=== PATIENT | female | born 1935 | race Caucasian/White ===

== ENCOUNTER 2019-06-28 10:25 | Inpatient (IN) | payer OTHER ==
[~2019-06-28] VITALS: Ht 160 cm; Wt 63.5 kg
[2019-06-28 10:25] VITALS: BP 141/71
[2019-06-28 11:02] LABS: ABSOLUTE NEUTROPHILS 12.2 thou/uL (1.4-8.2); BASOPHILS 0.4 % (0.0-2.0); HEMATOCRIT 39.6 % (37.0-47.0); HEMOGLOBIN 12.5 gm/dL (12.0-15.0); LYMPHOCYTES 6.9 % (24.0-44.0); MCH 25.2 pg (26.0-34.0); MCHC 31.5 g/dL (28.0-37.0); PLATELET COUNT 295 thou/uL (150-400); POLYS 88.7 % (36.0-66.0); RBC 4.95 mil/uL (4.20-5.00); WBC 13.8 thou/uL (4.0-11.0)
[2019-06-28 11:06] LABS: CALCIUM 9.9 mg/dL (8.5-10.1); CREATININE 1.5 mg/dL (0.6-1.0); POTASSIUM 4.1 mmol/L (3.5-5.1)
[2019-06-28 11:07] LABS: PROTIME 10.5 Seconds (9.3-11.4)
[2019-06-28 11:12] LABS: ALBUMIN 3.9 g/dL (3.4-5.0); TOTAL BILIRUBIN 0.5 mg/dL (<0.1-1.0); TOTAL PROTEIN 8.3 g/dL (6.4-8.2)
[2019-06-28 11:27] LABS: URINE BILIRUBIN NEGATIVE (Negative); URINE BLOOD 2+ (Negative); URINE CLARITY CLEAR; URINE COLOR YELLOW; URINE GLUCOSE-RANDOM* NEGATIVE (Negative); URINE KETONES NEGATIVE (Negative); URINE LEUKOCYTES-REFLEX NEGATIVE (Negative); URINE NITRITE-REFLEX NEGATIVE (Negative); URINE PROTEIN (DIPSTICK) 1+ (Negative); URINE SPECIFIC GRAVITY 1.015 (1.005-1.035); URINE UROBILINOGEN 0.2 E.U./dl (0.2-1.0)
[2019-06-28] MEDS ORDERED: ALLOPURINOL 10100 M3 PO (11:29)
[2019-06-28] MEDS ORDERED: ASA81BEC PO (11:30)
[2019-06-28] MEDS ORDERED: ALPRAZOLAM 0.0.25 M1 PO (11:30)
[2019-06-28] MEDS ORDERED: NORVASC 2.5 MG2.5 M1 PO (11:30)
[2019-06-28] MEDS ORDERED: B-121000 MC2 PO (11:31)
[2019-06-28] MEDS ORDERED: CALCIUM + D SO1 EACH PO (11:31)
[2019-06-28] MEDS ORDERED: FUROSEMIDE 40 M40 MG PO (11:32)
[2019-06-28] MEDS ORDERED: LOPERAMIDE 2 MG2 M1 PO (11:32)
[2019-06-28] MEDS ORDERED: HYDRALAZINE 2525 M1 PO (11:32)
[2019-06-28] MEDS ORDERED: LEVO-T25 MCG PO (11:33)
[2019-06-28] MEDS ORDERED: SUPER THERAVIT1 EACH PO (11:33)
[2019-06-28 12:14] LABS: CASTS None Seen /LPF (None Seen); CRYSTALS None Seen /LPF (None Seen); SQUAMOUS 0-3 Few /LPF (0-3)
[2019-06-28 12:15] LABS: BACTERIA-REFLEX 1-9 Few /HPF (None Seen); URINE RBC 0-2 Rare /HPF (0-2); URINE WBC-REFLEX 0-5 Rare /HPF (0-5)
[2019-06-28 14:13] LABS: HEMATOCRIT 34.8 % (37.0-47.0); HEMOGLOBIN 11.1 gm/dL (12.0-15.0)
--- NOTE | 2019-06-28 18:38 | NUR ---
REC REPORT ON PT AROUND 182, ARRIVED AT 1830, MOVED TO BED, TELE PLACED, WHEN ASKED IF SHE COULD HEAR STAFF SHE NODDED, REPORT WAS STERNUM RUB DONE AND NO RESPONSE. SHE MOANED WHEN WE MOVED HER, ACCU CHECKS, RUSSELL YELLOW URINE, HAS STRONG PIPE COREMAKER ON AIDE, WHEN HER NAMES MENTIONED SHE GRUNTS. WILL GIVE REPORT TO ONCOMING SHIFT SHORTLY AND CONTINUE TO MONITOR
[2019-06-28 19:13] LABS: HEMATOCRIT 35.8 % (37.0-47.0); MCH 24.8 pg (26.0-34.0); MCHC 30.8 g/dL (28.0-37.0); MCV 80.6 fL (80.0-100.0); RBC 4.45 mil/uL (4.20-5.00); RDW 17.7 % (10.5-14.5); WBC 14.5 thou/uL (4.0-11.0)
[2019-06-28 20:07] VITALS: BP 117/55
[2019-06-28 22:06] LABS: HEMATOCRIT 33.9 % (37.0-47.0); HEMOGLOBIN 10.7 gm/dL (12.0-15.0)
[2019-06-28 23:58] VITALS: BP 123/79
[2019-06-29 05:01] LABS: ABSOLUTE NEUTROPHILS 9.8 thou/uL (1.4-8.2); BASOPHILS 0.2 % (0.0-2.0); HEMATOCRIT 32.8 % (37.0-47.0); HEMOGLOBIN 10.2 gm/dL (12.0-15.0); LYMPHOCYTES 8.4 % (24.0-44.0); MCH 25.1 pg (26.0-34.0); MCHC 31.2 g/dL (28.0-37.0); MCV 80.5 fL (80.0-100.0); MONOCYTES 8.1 % (1.0-8.0); PLATELET COUNT 236 thou/uL (150-400); POLYS 83.3 % (36.0-66.0); RBC 4.07 mil/uL (4.20-5.00); RDW 17.6 % (10.5-14.5); WBC 11.8 thou/uL (4.0-11.0)
[2019-06-29 05:05] VITALS: BP 109/52
--- NOTE | 2019-06-29 05:07 | NUR ---
PATIENS CARES WERE ASSUMED AT [facility]. PATIENT WAS ASSESSED AND MEDS WERE PASSED. PATIENT CONTINUES TO BE NON VERBAL SHE WILL SHAKE HER HEAD YES AND NO. ODERES THAT WERE WRITTEN YESTERDAY AFTERNOON WERE NOT TAKEN OFF UNTIL LAST NIGHT. WILL DO CALL OUTS FOR CONSULTS AT A MORE AGREEABLE TIME. HOURLY ROUNDS WERE DONE. THE BED IS IN A LOW AND LOCKED POSITION.
[2019-06-29 05:16] LABS: CREATININE 1.4 mg/dL (0.6-1.0); MAGNESIUM 1.9 mg/dL (1.8-2.4); POTASSIUM 3.8 mmol/L (3.5-5.1)
[2019-06-29 08:08] VITALS: BP 153/69
--- NOTE | 2019-06-29 14:05 | NUR ---
Assumed pt care at 7am.Pt in bed sound asleep most of the time and non responsive to verbal stimuli.Assessment completed.vss but low grade temp noted.Dr Pryor and Thiago here.Order noted.Pt left for ct head later this afternoon.Report called to Dr Pryor.Tylenol supp given later this afternoon for elevated temp with relief.Received call from pt's son,updates given.He wanted to get information from Dr Pryor. Rn obtained his number and forward to Dr Pryor.No changes in pt medical status.Gutierrez to dd with o2 on per nc. Repositioned in bed for comfort.Will continue to monitor.
[2019-06-29 15:27] VITALS: BP 157/82
--- NOTE | 2019-06-29 16:27 | NUR ---
Patient admits from [facility] with CVA. She has become less responsive throughout day per RN. Rec cconsult from Dr Damon for hospice house eval. Sp with sons Pieter lives local and other son out of town. Reviewed with son hospice at home, facility and hospice house. Reviewed options of hospice house. Son interested in [facility]. Sp with [facility] in intake. [place] estate planner faxing referral. Hospice will contact RN for review of criteria. They will call gabriel Stapleton. Eval in process will need outside DNR form signed by physBhargavi Allenmgt to finalize in am. Updated RN on floor and phys.
[2019-06-29 20:00] VITALS: BP 154/74
[2019-06-29 23:00] VITALS: BP 125/63
[2019-06-30 05:32] VITALS: BP 147/72
--- NOTE | 2019-06-30 07:02 | NUR ---
PATIENT CONTINUES ON COMFORT CARE. WASHED HER FACE AND DID ORAL CARE BEFORE TUCKING HER IN LAST NIGHT. SUPPOSITORY NOT GIVEN DUE TO A LARGE STOOL AT ABOUT 2000. ROUNDS WERE MADE AND THE BED IS IN A LOW AND LOCKED POSITION.
[2019-06-30 07:45] VITALS: BP 133/59
--- NOTE | 2019-06-30 10:45 | NUR ---
DISCHARGING TO HOSPICE HOUSE AT 1200. OUTSIDE THE HOSPITAL DNR COMPLETED. REPORT CALLED TO NENA AT . SR W/OCCASIONAL PVC'S PER TELE. NO S/S PAIN, DISCOMFORT, OR SOB. FALL PRECAUTIONS IN PLACE. WILL CONTINUE TO MONITOR.
--- NOTE | 2019-06-30 10:57 | NUR ---
Hospice evaled patient last evening and sp with sons Gilbert and Pieter. Patient appropriate for [facility]. Bed avail today they prefer transfer after 11:00 per Melonie at [facility]. [facility] for 1200. Notifed son Gilbert. Reviewed outside DNR form with Gilbert who wants patient DNR with transport. Notified [facility] of verbal order. Notifed phys of outside DNR form, acceptance to hospice house and time. Melonie with [facility] notified son Pieter of acceptance and time of transfer. RN has number for report. No further needs.
== END 2019-06-30 12:09 | disposition hospice, inpatient (51) | DRG 64 ==
LOC: ER 10:25 → 2N 13:16 → EROBS 13:16 → 2N 18:23
PROVIDERS: Emergency Medicine Emergency Medical Services; Nurse Practitioner; ADMIT Hospitalist
DX: I63.9 Cerebral infarction, unspecified (principal); G93.6 Cerebral edema; G93.41 Metabolic encephalopathy; R65.11 Systemic inflammatory response syndrome (SIRS) of non-infectious origin with acute organ dysfunction; K92.0 Hematemesis; K56.49 Other impaction of intestine; N17.9 Acute kidney failure, unspecified; E86.0 Dehydration; E11.9 Type 2 diabetes mellitus without complications; I25.10 Atherosclerotic heart disease of native coronary artery without angina pectoris; I10 Essential (primary) hypertension; Z66 Do not resuscitate; E03.9 Hypothyroidism, unspecified; Z88.8 Allergy status to other drugs, medicaments and biological substances; Z95.5 Presence of coronary angioplasty implant and graft; Z79.899 Other long term (current) drug therapy; R29.720 NIHSS score 20
CPT/HCPCS: 10081